=== PATIENT | female | born 1970 ===

== ENCOUNTER 2021-05-04 20:41 | Emergency (ER) | payer SELFPAY ==
[2021-05-04 20:54] VITALS: BP 189/102
--- NOTE | 2021-05-04 21:20 | XRay Report ---
CHEST 2 VIEWS INDICATION / CLINICAL INFORMATION: COUGH. COMPARISON: None available. FINDINGS: SUPPORT DEVICES: None. HEART / MEDIASTINUM: No significant abnormality. LUNGS / PLEURA: No significant pulmonary or pleural abnormality. No pneumothorax. ADDITIONAL FINDINGS: No significant additional findings. IMPRESSION: 1. No acute findings. Signer Name: Arsh Brown MD Signed: 05/04/2021 9:16 PM Workstation Name: [id number]
== END 2021-05-04 23:45 | disposition left against medical advice (07) ==
LOC: ED 20:41
DX: R50.9 Fever, unspecified (principal); Z53.21 Procedure and treatment not carried out due to patient leaving prior to being seen by health care provider
CPT/HCPCS: 71046